=== PATIENT | female | born 1985 | race Asian ===

== ENCOUNTER 2023-01-23 08:25 | Emergency (ER) | payer SELFPAY ==
[~2023-01-23] VITALS: Ht 165.1 cm; Wt 73.0 kg
[2023-01-23 08:35] VITALS: BP 120/84; TEMP 98.5
[2023-01-23] MEDS ORDERED: CEPH500C2 PO (08:52)
[2023-01-23 09:00] VITALS: O2SAT 100
[2023-01-23 09:32] LABS: PREGNANCY TEST URINE QUAL NEGATIVE (NEGATIVE)
[2023-01-23 09:34] LABS: APPEARANCE,URINE CLEAR (CLEAR); BILIRUBIN,URINE NEGATIVE (NEGATIVE); BLOOD, URINE NEGATIVE Ery/uL (NEGATIVE); COLOR,URINE YELLOW (YELLOW); KETONES,URINE NEGATIVE (NEGATIVE); LEUKOCYTE ESTERASE ,URINE TRACE (NEGATIVE); NITRITE, URINE NEGATIVE (NEGATIVE); PH,URINE 6.5 (5.0-8.0); PROTEIN,URINE NEGATIVE (NEGATIVE); UGLUCOSE NEGATIVE (NEGATIVE); UROBILINOGEN,URINE 0.2 EU/dL (0.2)
[2023-01-23 10:57] LABS: ADD URINE CULTURE YES; BACTERIA,URINE 1+ /HPF (None Seen); RBC,URINE NONE SEEN /HPF (0-2)
== END 2023-01-23 09:02 | disposition home or self-care (01) ==
LOC: ER 08:34
DX: N39.0 Urinary tract infection, site not specified (principal); Z79.899 Other long term (current) drug therapy; Z60.2 Problems related to living alone
CPT/HCPCS: 81001; 84703-TC; 87086-TC